=== PATIENT | male | born 1980 | race Caucasian/White ===

== ENCOUNTER 2016-09-18 08:57 | Day surgery (SDC) | payer BC ==
[~2016-09-18] VITALS: Ht 180.3 cm; Wt 79.0 kg
[~2016-09-18 08:57] MED LIST: BUPIVACAINE LIPOSOME/PF INFIL ONE; CREA100P6 PO; DOCU100C8 PO; FENTANYL PF 250 MCG/5ML ONE; MIDAZOLAM 1 MG/ML, 5ML ONE; MULT-82 PO; NO MEDICATIONS
[2016-09-18 09:16] VITALS: BP 129/79
[2016-09-18] MEDS ORDERED: LACTATED RINGERS 1,000 ML IV SCH (09:18)
[2016-09-18 09:33] VITALS: BP 129/79
[2016-09-18] MEDS ORDERED: PROPOFOL 10 MG/ML, 20ML ONE (11:24)
[2016-09-18] MEDS ORDERED: ONDANSETRON 2MG/ML, 2ML ONE (11:24)
[2016-09-18] MEDS ORDERED: DEXAMETHASONE 4 MG/ML, 1ML ONE (11:24)
[2016-09-18] MEDS ORDERED: METOPROLOL 1 MG/ML, 5ML IV PRN (11:30)
[2016-09-18] MEDS ORDERED: EPHEDRINE 50 MG/ML, 1ML IVPush PRN (11:30)
[2016-09-18] MEDS ORDERED: hydrALAzine 20 MG/ML, 1ML IV PRN (11:30)
[2016-09-18] MEDS ORDERED: ONDANSETRON 2MG/ML, 2ML IVPush PRN (11:30)
[2016-09-18] MEDS ORDERED: FENTANYL PF 100 MCG/2ML IV PRN (11:30)
[2016-09-18] MEDS ORDERED: MIDAZOLAM 1 MG/ML, 2ML IV PRN (11:30)
[2016-09-18] MEDS ORDERED: HYDROmorphone 1 MG/ML, 1ML IV PRN (11:30)
[2016-09-18] MEDS ORDERED: ACETAMINOPHEN 325 MG TABLET PO PRN (11:30)
[2016-09-18] MEDS ORDERED: OXYcodone 5 MG/5 ML ORAL.SOL UDC PO PRN (11:30)
[2016-09-18] MEDS ORDERED: LABETALOL 5MG/ML, 20ML IV PRN (11:30)
[2016-09-18] MEDS ORDERED: PROMETHAZINE 25 MG/ML, 1ML IV PRN (11:30)
[2016-09-18] MEDS ORDERED: MEPERIDINE/PF 25MG/0.5ML IVPush PRN (11:30)
== END 2016-09-18 13:50 | disposition home or self-care (01) ==
LOC: OUT 08:57
PROVIDERS: ATTEND Surgery
DX: K61.2 Anorectal abscess (principal); Z80.9 Family history of malignant neoplasm, unspecified
CPT/HCPCS: 46280; C9290; J1100; J2250; J2405; J2704; J3010; J7120

== ENCOUNTER 2018-02-04 06:10 | Day surgery (SDC) | payer BC ==
[~2018-02-04] VITALS: Ht 180.3 cm; Wt 78.0 kg
[~2018-02-04 06:10] MED LIST changes: -BUPIVACAINE LIPOSOME/PF INFIL ONE; +DOCU100C33 PO; -DOCU100C8 PO; +ESCI5TAB7 PO; -FENTANYL PF 250 MCG/5ML ONE; +LACT1CAP35 PO; -MIDAZOLAM 1 MG/ML, 5ML ONE; +MULT-224 PO; -MULT-82 PO
[2018-02-04] MEDS ORDERED: LACTATED RINGERS 1,000 ML IV SCH (06:35)
[2018-02-04 06:51] VITALS: BP 136/82
[2018-02-04] MEDS ORDERED: EPHEDRINE 50 MG/ML, 1ML ONE (08:33)
[2018-02-04] MEDS ORDERED: KETOROLAC 30 MG/1 ML IV PRN (09:00)
[2018-02-04] MEDS ORDERED: MIDAZOLAM 1 MG/ML, 2ML IV PRN (09:00)
[2018-02-04] MEDS ORDERED: ACETAMINOPHEN 325 MG TABLET PO PRN (09:00)
[2018-02-04] MEDS ORDERED: ONDANSETRON 2MG/ML, 2ML IV PRN (09:00)
[2018-02-04] MEDS ORDERED: FENTANYL PF 100 MCG/2ML IV PRN (09:00)
[2018-02-04] MEDS ORDERED: EPHEDRINE 50 MG/ML, 1ML IVPush PRN (09:00)
[2018-02-04] MEDS ORDERED: EPHEDRINE 50 MG/ML, 1ML IM PRN (09:00)
[2018-02-04] MEDS ORDERED: PROMETHAZINE 25 MG/ML, 1ML IV PRN (09:00)
[2018-02-04] MEDS ORDERED: OXYcodone 5 MG/5 ML ORAL.SOL UDC PO PRN (09:00)
[2018-02-04] MEDS ORDERED: PROPOFOL 10 MG/ML, 50ML ONE (11:16)
== END 2018-02-04 10:05 | disposition home or self-care (01) ==
LOC: OUT 06:10
PROVIDERS: ATTEND Surgery
DX: K63.5 Polyp of colon (principal); K60.3 Anal fistula; K64.8 Other hemorrhoids; F32.9 Major depressive disorder, single episode, unspecified; J45.909 Unspecified asthma, uncomplicated; Z98.890 Other specified postprocedural states; Z72.89 Other problems related to lifestyle; Z87.891 Personal history of nicotine dependence; Z79.899 Other long term (current) drug therapy
CPT/HCPCS: 45380; 88305; J2704; J7120